=== PATIENT | female | born 1980 | race Caucasian/White ===

== ENCOUNTER 2019-04-21 11:28 | Emergency (ER) | payer BC, SELFPAY ==
[2019-04-21 11:29] VITALS: BP 170/89; PULSE 118; RESP 16; TEMP 36.7; O2SAT 98; BMI 38.8
[2019-04-21 11:44] VITALS: BP 136/83; PULSE 104; RESP 18; O2SAT 98
--- NOTE | 2019-04-21 11:52 | CT_ITS ---
STUDY: CT BRAIN WITHOUT CONTRAST REASON FOR EXAM: Female, 38 years old. DIZZY/RT EYE BLURRINESS RADIATION DOSAGE (If Supplied By Facility): CTDIvol = ( 44.99 ) mGy, DLP = ( 796.11 ) mGycm TECHNIQUE: Transaxial CT imaging of the brain was performed without administration of intravenous contrast material. Individualized dose optimization techniques were used for this CT. COMPARISON: No relevant priors. FINDINGS: Normal soft tissue structures. Normal calvarium. Normal size ventricles and extra-axial spaces for the patient's age. Normal white matter tracts of the cerebral hemispheres. Normal basal ganglia and thalami. Normal brainstem. Normal cerebellum. There is no intracranial hemorrhage. There are no findings of an acute ischemic infarction. Normal visualized paranasal sinuses. CT/Brain/Head without Contrast IMPRESSION: Normal unenhanced CT scan of the brain. Electronically Signed: Ritchie Payton MD at 12:31 EDT Tel , Service support ,
--- NOTE | 2019-04-21 11:59 | ED.VISSUMM ---
- ER Visit Summary Date of Service: 04/21/19 Chief Complaint: Dizzy History of Present Illness: The patient is a 38 F dyspnea past medical history. Patient states she was taken to walk. After the walk she was eating breakfast felt dizzy. May be some slight visual change in the right that is now resolved. May be a mild right headache. No trauma. No fever. No sinus congestion. No prior history. Currently states she is improving. She denies any trouble moving her arms or legs. No trouble with her balance. No slurred speech or numbness or tingling. Physical Examination: Female no acute distress vital signs stable afebrile. HEENT exam normal. Pupils round react to light. Extra motions are intact. No facial droop. Normal speech. Neck nontender. Lungs clear to auscultation bilaterally. Heart regular rhythm no murmur. Rate about 100. Abdomen soft nontender normal bowel sounds no peritoneal signs. Patient is moving all 4 extremities. Neurovascular intact. Normal touch sensation. 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 5 out of 5. Normal dorsi plantarflexion. Neurologic exam normal NIH is 0. Fingertip to nose [id number] all within normal limits. Test Results: CAT scan of the brain without contrast shows no acute abnormality read by the radiologist reviewed by me. Emergency Department Course and Treatment: Patient's exam and initial complaint is vague. Her exam is completely unremarkable and normal. Repeat exam at 1340 patient is doing well. No change. She denied discussed her CAT scan results. Treatment Plan: Follow-up with her primary care physician and return if worse. Disposition: Discharge Impression: Transient right-sided headache with dizziness uncertain etiology This note was generated with [employer]UK[employer] dictation software. It may contain incorrect words, spelling, and punctuation that were not noted in review of the chart prior to signing ED Disposition - Plan for ED Patient: Referrals: Migue Mcgowan MD [Primary Care Provider] -
--- NOTE | 2019-04-21 12:56 | EKG12_ITS ---
Test Reason : PALPITATIONS Blood Pressure : / mmHG Vent. Rate : 100 BPM Atrial Rate : 100 BPM P-R Int : 132 ms QRS Dur : 076 ms QT Int : 328 ms P-R-T Axes : 065 010 036 degrees QTc Int : 423 ms Normal sinus rhythm Possible Left atrial enlargement Borderline ECG Confirmed by JOSIE WRIGHT, ARLEEN ([id number]), magazine editor TRAMAINE HERNÁNDEZ ([id number]) on 04/26/2019 8:39:02 AM Referred By: DANIEL/MARION Confirmed By:ARLEEN GALINDO MD
--- NOTE | 2019-04-21 13:42 | ED.DEP ---
ED Disposition - Plan for ED Patient: Disposition: Home or Assisted Living Referrals: Migue Mcgowan MD [Primary Care Provider] - 5-7 Days Additional Instructions: Your CAT scan was normal today. Follow-up with your doctor. Return if feeling worse.
[2019-04-21 14:44] VITALS: BP 124/70; PULSE 86; RESP 16; BMI 38.8
== END 2019-04-21 14:45 | disposition home or self-care (01) ==
PROVIDERS: Emergency Provider Emergency Medicine; Family Provider Internal Medicine; PCP Internal Medicine
DX: R51 Headache (principal); R42 Dizziness and giddiness
CPT/HCPCS: 70450; 93005; 99283

== ENCOUNTER → 2020-03-28 17:51 | Outpatient (CLI) | payer BC, SELFPAY | PROVIDERS: Referring Provider Physician Assistant; Visit Provider Physician Assistant | DX: Z20.828 Contact with and (suspected) exposure to other viral communicable diseases (principal) | CPT/HCPCS: 87635; C9803; U0003 ==

== ENCOUNTER 2023-02-06 18:15 | Emergency (ER) | payer BC, SELFPAY ==
[2023-02-06 18:17] VITALS: BP 193/104; PULSE 94; RESP 18; TEMP 36.4; O2SAT 94; BMI 40.2
[2023-02-06 19:09] VITALS: BP 149/94; PULSE 91; RESP 99; O2SAT 97
--- NOTE | 2023-02-06 19:51 | CT_ITS ---
STUDY: CT BRAIN WITHOUT CONTRAST REASON FOR EXAM: Female, 42 years old. Pain RADIATION DOSAGE (If Supplied By Facility): CTDIvol = ( 44.99 ) mGy, DLP = ( 796.11 ) mGycm TECHNIQUE: Transaxial CT imaging of the brain was performed without administration of intravenous contrast material. Individualized dose optimization techniques were used for this CT. COMPARISON: 04/21/2019 FINDINGS: Normal soft tissue structures. Normal calvarium. Normal size ventricles and extra-axial spaces for the patient''s age. Normal white matter tracts of the cerebral hemispheres. Normal basal ganglia and thalami. Normal brainstem. Normal cerebellum. There is no intracranial hemorrhage. There are no findings of an acute ischemic infarction. Normal visualized paranasal sinuses. CT/Brain/Head without Contrast IMPRESSION: Normal unenhanced CT scan of the brain. Electronically Signed: Ricci Arambula MD at 20:45 EDT ,
--- NOTE | 2023-02-06 19:52 | EDS_ITS ---
HPI History of Present Illness Chief Complaint: Headache Informant: patient Narrative Narrative: 42-year-old female presenting to the emergency room on day 4 of a left frontal headache. Patient states she does not normally get headaches but if she does it is usually in the right frontal aspect. She states that Friday while at [employer] while sitting she had a near syncopal episode. This episode resolved and she felt fine on Friday. Friday the headache began and it has stayed the same. She notes that today she had some blurry vision and some occasional double vision. She notes that while walking her arms felt tingling and she went to her car to sit down and that episode lasted 20 minutes. She denies any recent infections or head injuries. She does not wear corrective lenses or contacts. No rashes. She notes that she does not take anything currently for hypertension. [facility] Medical History FH: cholecystectomy Home Medications bupropion HCl 300 mg 24 hr tablet, extended release 350 mg PO DAILY 02/06/23 [History Last Taken Unknown] Allergy/AdvReac Type Severity Reaction Status Date / Time nitrofurantoin Allergy Hives Verified 02/06/23 18:17 [From Macrobid] sulfamethoxazole Allergy Angioedema Verified 02/06/23 18:17 [From Bactrim] trimethoprim [From Bactrim] Allergy Angioedema Verified 02/06/23 18:17 Surgical History H/O: Social History Smoking Status: Never smoker ROS ROS ED Constitutional Constitutional ED: Denies chills or weight loss Eyes Eyes: Reports blurry vision and diplopia ENT ENT ED: Denies ear pain, rhinorrhea or sore throat Cardiovascular Cardiovascular: Denies chest pain, orthopnea, palpitations or racing heartbeat Respiratory/Chest Respiratory/Chest: Denies cough, dyspnea or orthopnea Gastrointestinal Gastrointestinal: Denies abdominal pain, diarrhea, nausea or vomiting Genitourinary Genitourinary ED: Denies dysuria, hematuria or urinary frequency Musculoskeletal Musculoskeletal: Denies arthralgias or myalgias Integumentary Denies abscess or rash Neurologic Neurologic: Reports headache(s); Denies weakness Psychiatric Psychiatric: Denies anxiety, depression, suicidal ideation or suicidal thoughts Endocrine Endocrinology: Denies polydipsia, polyphagia or polyuria Allergic/Immunologic Allergic/Immunologic ED: Denies mouth swelling, tongue swelling or urticaria EXAM Physical Exam Const Vital Signs: 02/06/23 18:17 02/06/23 19:09 02/06/23 19:10 Temperature 97.6 F L Temperature Source Temporal Pulse Rate 94 91 Respiratory Rate 18 99 H Respiratory Effort Normal Respiratory Pattern Normal Blood Pressure 193/104 H 149/94 H Blood Pressure Mean 133 112 Pulse Ox 94 97 Oxygen Delivery Method Room Air Room Air 02/06/23 20:55 Temperature Temperature Source Pulse Rate 79 Respiratory Rate 16 Respiratory Effort Respiratory Pattern Blood Pressure 125/61 H Blood Pressure Mean 82 Pulse Ox 97 Oxygen Delivery Method Room Air Positive well nourished and well developed General Appearance ED: well developed HEENT Reports normocephalic, head/scalp atraumatic and moist mucous membranes Eyes PERRL and EOMs intact bilaterally Neck no lymphadenopathy, supple and no JVD Resp normal respiratory effort and clear to auscultation bilaterally Cardio regular rate, regular rhythm and no murmurs GI normal to inspection, nondistended, normoactive bowel sounds and non-tender Palpation: soft Back/Spine no CVA tenderness and normal ROM Extremity normal to inspection General Extremety ED: Negative for edema General Extremity: Negative for edema Neuro oriented x3 and CN's II-XII intact bilaterally Sensorium / Orientation: alert Motor Exam: strength 5/5 throughout Psych mental status grossly normal Mood & Affect: Negative for depressed or tearful Skin no rashes or lesions noted and no wounds MDM MDM MDM Narrative Medical decision making narrative: Basic blood work obtained and was normal. Hemoglobin 13.2. Creatinine 0.71 and glucose of 85. CT the brain was obtained read by radiology reviewed by myself. This is negative for hemorrhage or mass or obvious lesions. Patient received a dose of Toradol and is overall feeling better. She remains neurologically intact. Her blood pressure has come down. At this point patient be discharged home return if worsening or concerns following up with primary care Lab Data Attestation: I reviewed the patient's lab results. Labs: Laboratory Results - last 24 hr 02/06/23 20:05 WBC 11.2 H RBC 4.54 Hgb 13.2 Hct 41.3 MCV 91.0 MCH 29.1 MCHC 32.0 RDW Std Deviation 44.0 H RDW Coeff of Zenia 13.2 Plt Count 351 MPV 9.8 Immature Gran % (Auto) 0.300 Neut % (Auto) 71.5 H Lymph % (Auto) 19.4 Avery % (Auto) 6.7 Eos % (Auto) 1.8 Baso % (Auto) 0.3 Absolute Neuts (auto) 8.1 H Absolute Lymphs (auto) 2.18 Nucleated RBC % 0 Sodium 137 Potassium 4.0 Chloride 104 Carbon Dioxide 28.0 Anion Gap 5 BUN 15 Creatinine 0.71 Estim Creat Clear Calc 90.04 Est GFR (MDRD) Af Amer 117 Est GFR (MDRD) Non-Af 97 BUN/Creatinine Ratio 21.2 H Glucose 85 Calcium 9.7 Discharge Plan Triage Chief Complaint: Headache ED Provider: Drake Baron Dx/Rx/DC Orders Clinical Impression: Headache Instructions: ED Headache Unspecified Prescriptions: No Action bupropion HCl 300 mg tablet extended release 24 hr 350 mg PO DAILY Patient Comments: take 1 tablet by mouth once daily Primary Care Provider: Care Physician,No Primary Referrals: Care Physician,No Primary [Primary Care Provider] - As Needed Disposition Disposition: Home, Self Care
[2023-02-06] MEDS: Ketorolac 30 MG/ML Syringe IV (20:05)
[2023-02-06 20:10] LABS: Absolute Lymphocyte Count 2.18 X10^3/uL (0.83-4.51); Absolute Neutrophil Count 8.1 X10^3/uL (2.0-7.7); Basophil# 0.03 X10^3/uL; Basophil% 0.3 % (0-1); Eosinophils% 1.8 % (0-5); Hematocrit 41.3 % (37-47); Hemoglobin 13.2 g/dL (12.0-15.0); Lymphocyte # 2.18 X10^3/ul (0.83-4.51); Lymphocyte % 19.4 % (19-41); Mean Corpuscular Hgb 29.1 pg (27.0-32.0); Mean Platelet Vol. 9.8 fl (6.2-12.0); Monocyte# 0.75 X10^3/uL; Monocyte% 6.7 % (0-10); NRBC Flagged by Analyzer 0 % (0-5); Neutrophil # 8.05 X10^3/uL (2.7-7.7); Neutrophil % 71.5 % (47-70); Platelet Count 351 K/mm3 (150-450); RBC Distribution Width CV 13.2 % (11.6-14.6); Red Blood Count 4.54 M/mm3 (4.2-5.4); White Blood Count 11.2 K/mm3 (4.4-11.0)
[2023-02-06 20:24] LABS: Anion Gap 5 (5-15); BUN 15 mg/dL (7-18); BUN/Creat Ratio 21.2 RATIO (10-20); Calcium,Total 9.7 mg/dL (8.5-10.1); Chloride 104 mmol/L (98-107); Creatinine, Serum 0.71 mg/dL (0.55-1.02); EST Glomerular Filtration Rate 97 mL/min (>60); Est Glom Filt Rate - Afr Amer 117 mL/min (>60); Estimated Creatinine Clearance 90.04 ml/min; Glucose 85 mg/dL (74-106); Sodium Level 137 mmol/L (136-145)
[2023-02-06 20:55] VITALS: BP 125/61; PULSE 79; RESP 16; O2SAT 97
== END 2023-02-06 22:05 | disposition home or self-care (01) ==
PROVIDERS: Emergency Provider Emergency Medicine; Visit Provider Emergency Medicine
DX: R51.9 Headache, unspecified (principal); Z79.899 Other long term (current) drug therapy
CPT/HCPCS: 70450; 80048; 85025; 96374; 99285; A4216

== ENCOUNTER → 2024-07-21 | Outpatient (CLI) | payer OTHER, SELFPAY ==
[2024-07-27 12:28] LABS: HPV APTIMA, High Risk Negative (Negative)
== END | disposition home or self-care (01) ==
PROVIDERS: Visit Provider Obstetrics & Gynecology
DX: Z12.4 Encounter for screening for malignant neoplasm of cervix (principal)
CPT/HCPCS: 87624; 88175; G0145

== ENCOUNTER → 2024-07-26 | Outpatient (CLI) | payer OTHER, SELFPAY ==
--- NOTE | 2024-07-26 17:50 | US_ITS ---
PROCEDURE: PELVIC W/ TRANSVAGINAL TECHNIQUE: Transabdominal and transvaginal pelvic ultrasound COMPARISON: None. FINDINGS: The uterus is anteverted measuring 9.8 x 5.7 x 3.6 cm. No abnormal masses or fluid collections are identified. Endometrial stripe measures 8 mm. No intrauterine . No intrauterine device is noted. Nabothian cyst within the lower uterine segment. Cervix appears within normal limits. The right ovary measures 2.5 x 1.5 x 1.6 cm. No abnormal masses or fluid collections are identified. Blood flow is demonstrated. The left ovary measures 3.2 x 2.2 x 1.4 cm. No abnormal masses or fluid collections are identified. Blood flow is demonstrated. No free fluid is seen within the pelvis. The urinary bladder measures 13.3 x 9.7 x 8.1 cm, for an estimated volume of 547.1 mL. US/Pelvic w/ Transvaginal IMPRESSION: 1. Uterus is anteverted measuring up to 9.8 cm. No masses or fluid collections are identified. 2. No ovarian masses or fluid collections are identified. 3. Negative for ovarian torsion, bilaterally. Reading [facility]
== END | disposition home or self-care (01) ==
LOC: US 17:47
PROVIDERS: Visit Provider Obstetrics & Gynecology
DX: N85.2 Hypertrophy of uterus (principal)
CPT/HCPCS: 76830; 76856

== ENCOUNTER → 2024-08-12 | Outpatient (CLI) | payer OTHER, SELFPAY ==
--- NOTE | 2024-08-12 09:23 | BI_ITS ---
PROCEDURE: SCREEN MAMM (CAD) W/SCOT UNI L REASON FOR EXAM: F, Age 43 y/o, personal history of breast cancer. Prior right mastectomy. July 31, 2023. COMPARISON: Prior exam(s) dating back to . TECHNIQUE: Bilateral diagnostic digital breast tomosynthesis with 2D and 3D images. Computer aided detection. FINDINGS: There are scattered areas of fibroglandular density. No suspicious calcifications or mass lesion is seen. Stable benign-appearing left axillary lymph nodes. BI/SCREEN MAMM (CAD) W/SCOT UNI L IMPRESSION: Annual mammographic follow-up recommended. BI-RADS 2: BENIGN RECOMMEND ANNUAL MAMMOGRAPHIC SCREENING. Reading Location: [facility]
--- NOTE | 2024-08-12 09:23 | BD_ITS ---
PROCEDURE: DEXA BONE DENSITY STUDY REASON FOR EXAM: F, age 43 y/o . Postmenopausal. TECHNIQUE: DEXA scan of the lumbar spine and both hips. COMPARISON: None. FINDINGS: T-SCORES Lumbar spine: The total bone mineral density measured 0.995 grams/centimeter squared. T-score measures -0.5 and Z-score measures -0.2. Left hip: Total bone mineral density of the left hip measures 1.084 grams/centimeter squared. T-score measures 1.2 and Z-score measures 1.4. Bone mineral density of the left femoral neck measures 0.828 grams/centimeter squared. T-score measures -0.2 and Z-score measures 0.2. Right hip: Total bone mineral density of the right hip measures 1.049 grams/centimeter squared. T-score measures 0.9 and Z-score measures 1.1. Bone mineral density of the right femoral neck measures 0.845 grams/centimeter sq. T-score measured 0 and Z-score measures 0.3. The patient demonstrates normal bone mineral density of the lumbar spine and both hips. FRAX* Results: 10 Year Probability of Fracture: Hip Fracture(1): <0.1% Major Osteoporotic Fracture(2): 1.9% *FRAX is a trademark of the [employer]'s [place] for Metabolic Bone Disease, World Health Organization (WHO) Collaborating [place]. 1-The 10-year probability of fracture may be lower than reported if the patient has received treatment. 2-Major Osteoporotic Fracture: Clinical Spine, Forearm, Hip or Shoulder. The T-scores are also available for review on the [facility] PACS or by accessing the [facility] electronic medical record. BD/Dexa Bone Density Study IMPRESSION: NORMAL T-SCORES. Reading Location: [id number]
== END | disposition home or self-care (01) ==
LOC: OPBI 09:11
PROVIDERS: Referring Provider Surgery; Visit Provider Surgery
DX: Z12.31 Encounter for screening mammogram for malignant neoplasm of breast (principal); Z78.0 Asymptomatic menopausal state; Z13.820 Encounter for screening for osteoporosis
CPT/HCPCS: 77063; 77067; 77080

== ENCOUNTER → 2024-08-25 | Outpatient (CLI) | payer OTHER, SELFPAY ==
--- NOTE | 2024-08-25 | EMB_PTH ---
PATIENT: LISSY KEARNEY LOC: [facility] U#:[id number] AGE/SX: 43/F ROOM: RE08/25/[address]: JOEY Reynolds : 1980 BED: DIS: 08/25/2024 SPEC #: [id number] RECD: 08/25/24 12:11 STATUS: TELMA SIMON #: [id number] ELIAZAR: 08/25/24 00:[address]: Dilia Romero NP DEPT: SURGICAL PATHOLOGY RECD BY: Shannan Abarca ENTERED: 08/25/24 12:19 SP TYPE: ENDOM BX/C DAVID DR: No Primary Care Phys Tissues: Endometrium, NOS Procedures: Surgery Specimen Level IV HEADER OPERATION: Endometrial biopsy PRE-OP DIAGNOSIS: Abnormal uterine bleeding TISSUE SUBMITTED: Endometrial lining MICROSCOPIC DIAGNOSIS Endometrium, biopsy: * Scant benign squamous and columnar epithelium - see note. * Note: There is insufficient tissue for evaluation of the endometrium. Repeat biopsy for additional material is suggested, if clinically indicated. MICROSCOPIC DESCRIPTION Slides are reviewed. GROSS DESCRIPTION Received in formalin labeled the patient's name Lissy Kearney and is undesignated are multiple red-laureano scant tissue fragments and mucus that aggregate to 1.7 x 1.5 x 0.1 cm. Fragments are entirely submitted in one cassette.JK. 08/25/2024 TC: CPT:84413
== END | disposition home or self-care (01) ==
LOC: LABSPEC 11:54
PROVIDERS: Referring Provider Nurse Practitioner Women's Health; Visit Provider Nurse Practitioner Women's Health
DX: N93.9 Abnormal uterine and vaginal bleeding, unspecified (principal)
CPT/HCPCS: 88305

== ENCOUNTER 2024-09-28 08:32 | Day surgery (SDC) | payer OTHER, SELFPAY ==
--- NOTE | 2024-09-14 18:17 | PAT.ANE_ITS ---
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 When Was Last Pacemaker Check QUESTION #4 FULL TEXT: You/Your Family Experience fever (hyperthermia) with Anesthesia Last Oral Intake Last Oral intake: Last Oral Intake NPO since Meds taken in AM with sips of water? Meds patient instructed to take am of surgery PONV PONV - data conversion operator: PONV - data conversion operator Female Yes 09/14/24 15:07 HX of Motion Sickness Yes 09/14/24 15:07 HX of N/V After Surgery No 09/14/24 15:07 Non-Smoker Yes 09/14/24 15:07 Duration of Surgery greater Yes 09/14/24 15:07 than 60 minutes Number of Risk Factors 4 09/14/24 15:07 PONV Score Severe Risk 09/14/24 15:07 Height & Weight Height & Weight: Anesthesia: Height & Weight Height 5 ft 5 in 09/06/24 15:56 Respiratory Assessment Respiratory Assessment - data conversion operator: Respiratory Tract Infection Hx - data conversion operator Hx Respiratory Tract Infection No 09/14/24 15:07 STOP Sleep Apnea STOP Sleep Apnea - data conversion operator: STOP Sleep Apnea - data conversion operator Hx Hypertension No 09/14/24 15:07 Hx Sleep Apnea No 09/14/24 15:07 CPAP BIPAP Do you snore loudly (louder Yes 09/14/24 15:07 than talking or can be heard Do you often feel tired/ Yes 09/14/24 15:07 fatigued/ sleepy during daytime? Has anyone observed you stop No 09/14/24 15:07 breathing during sleep? STOP Results Positive 09/14/24 15:07 QUESTION #5 FULL TEXT : Do you snore loudly (louder than talking or can be heard through closed doors)? 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 Specify any problems Hx of Preganancy in last 3 No 09/14/24 15:07 Months Nurse Filling Out Transfusion DSCHRIBER 09/14/24 15:07 & Questions: Date: 09/14/24 09/14/24 15:07 Time: 15:09 09/14/24 15:07 Patient unable to answer at this time (ie. confused, unrespo /Reproduction History /Reproductive History - data conversion operator: /Reproductive Hx- data conversion operator Hx Now No 09/14/24 15:07 Gestational Age (in weeks): EDC: Hx Hx Para Hx Section SAB No 09/14/24 15:07 PFSH Medical History (Updated 09/14/24 @ 15:14 by Delia Ritchie) Cancer Depression Marijuana use Anxiety Alcohol use Anemia Restless legs Back pain Migraine headache History of IBS Shortness of breath on exertion Leg cramps Non-smoker History of edema History of irregular heartbeat IFG (impaired fasting glucose) Use of aromatase inhibitors Screening for osteoporosis Breast screening Home Medications ?Medication ?Instructions ?Recorded ?Last Taken ?Type anastrozole 1 mg tablet 1 mg PO QDAY 06/29/24 Unknow n History fluticasone propionate 50 2 spray intranasal QDAY 01/14 Unknown History mcg/actuation nasal spray,suspension (Flonase Allergy Relief) ibuprofen 600 mg tablet 600 mg PO Q6H PRN pain 06/29 Unknown History leuprolide 3.75 mg intramuscular 3.75 mg IM QMONTH 11/1409/01/24 History syringe kit (Lupron Depot) lorazepam 0.5 mg tablet 0.5 mg PO QDAY PRN anxiety # 30 tabs 08/27/24 Unknown Rx Allergy/AdvReac Type Severity Reaction Status Date / Time ciprofloxacin (From Cipro) Allergy Intermediate Swelling Verified 09/14/24 15:04 nitrofurantoin (From Allergy Hives Verified 09/14/24 15:04 Macrobid) sulfamethoxazole (From Allergy Angioedema Verified 09/14/24 15:04 Bactrim) trimethoprim (From Bactrim) Allergy Angioedema Verified 09/14/24 15:04 Family History Other Alcoholism Anxiety Asthma Cancer Diabetes Hypertension Surgical History (Updated 09/14/24 @ 15:14 by Delia Ritchie) H/O right breast implant History of cholecystectomy H/O total mastectomy of right breast H/O: Social History household members: spouse Smoking Status: Never smoker alcohol intake: current alcohol intake frequency: a few times a month substance use type: other details: has started taking edibles caffeine: Yes what type of physical activity do you participate in: yoga frequency: daily seatbelt use: always do you feel safe at home: Yes additional social history: -Arron Audit: Pertinent Findings Pertinent Findings EKG Perinent findings: April 21, 2019. Normal sinus rhythm. Possible left atrial enlargement. Recommendation Anesthesia Recommendation Anesthesia recommendation: OPTIMIZED for anesthesia
[2024-09-21 10:52] LABS: Hematocrit 38.6 % (37-47); Hemoglobin 12.7 g/dL (12.0-15.0); Mean Corp Hgb Conc 32.9 g/dL (32-36); Mean Corpuscular Hgb 27.9 pg (27.0-32.0); Mean Corpuscular Volume 84.8 fL (81-99); Mean Platelet Vol. 9.8 fl (6.2-12.0); Platelet Count 358 K/mm3 (150-450); RBC Distribution Width CV 13.7 % (11.6-14.6); RBC Distribution Width SD 42.3 fl (35.1-43.9); Red Blood Count 4.55 M/mm3 (4.2-5.4); White Blood Count 6.5 K/mm3 (4.4-11.0)
[2024-09-21 12:48] LABS: Magnesium 2.1 mg/dL (1.5-2.2)
[2024-09-21 14:04] LABS: Cholesterol 196 mg/dL (<=200); High Density Lipoprotein 56 mg/dL; Low Density Lipoprotein Calc. 119 mg/dL; Triglycerides 104 mg/dL; Very Low Density Lipoprotein 21 mg/dL (5-40); cholesterol:hdl ratio screen 3.49
[2024-09-28] VITALS (15 sets, daily range): BP systolic 117–155; BP diastolic 70–97; PULSE 67–96; RESP 12–16; TEMP 36.1–36.7; O2SAT 96–100; BMI 42.3
[2024-09-28 09:01] LABS: Internal QC Validated? YES +Cl - CLEAR BKGD; Pregnancy, Urine Negative Negative
[2024-09-28] MEDS: Lactated Ringers 1,000 ML 15 ML IV (09:11)
[2024-09-28] MEDS: Magnesium 1 GM over 15 mins IV (09:11)
[2024-09-28] MEDS: Gabapentin 600 MG Tablet PO (09:12)
[2024-09-28] MEDS: Scopolamine 1mg/72hr Patch 1 PATCH TD (09:12)
[2024-09-28] MEDS: Phenazopyridine 95 MG Tablet 190 MG PO (09:12)
[2024-09-28] MEDS: Acetaminophen 500 MG Tablet 1000 MG PO (09:12)
[2024-09-28] MEDS: Celecoxib 200 MG Capsule 400 MG PO (09:12)
[2024-09-28] MEDS: Insulin Lispro 100 UNIT/ML INSULN.PEN SC (09:24)
--- NOTE | 2024-09-28 09:28 | PCM.PRE.AN2 ---
ASA Classification* ASA Classification ASA Classification: 3 Assessment & Plan Anesthesia* Anesthesia Assessment Anesthesia Assessment: Discussed sedation and/or anesthesia options, risks, benefits, and alternatives with patient/parents/legal guardian/POA. Questions invited. The patient/parents/legal guardian/POA seems to understand and agrees to proceed with anesthesia plan. Reviewed the physical assessment, medical history, allergy history and patient home medications list prior to surgery/procedure/anesthetic and documented any changes. Performed airway and anesthesia risk assessments. Anesthesia Type Anesthesia Type: General History Source History Obtained from:: Patient and Chart Anesthesia Focused Assessment* Temperature: 97.8 F Pulse Rate: 82 Blood Pressure: 155/90 Respiratory Rate: 16 Pulse Ox: 99 Oxygen Delivery Method: Room Air Airway Assessment Mouth opens: 2 cm Mallampati Score: III Teeth Condition: Caps/Crowns (There is a crown on #7. It is tight.) Neck Range of motion (ROM): Full ROM Focused Labs Anesthesia Preop lab: CBC WBC 6.5 K/mm3 (4.4-11.0) 09/21/24 10:10 09/21/24 RBC 4.55 M/mm3 (4.2-5.4) 09/21/24 10:10 09/21/24 Hgb 12.7 g/dL (12.0-15.0) 09/21/24 10:10 09/21/24 Hct 38.6 % (37-47) 09/21/24 10:10 09/21/24 Plt Count 358 K/mm3 (150-450) 09/21/24 10:10 09/21/24 CHEMISTRY Potassium 4.3 mmol/L (3.3-5.1) 09/01/24 10:19 09/01/24 Sodium 137 mmol/L (133-145) 09/01/24 10:19 09/01/24 Magnesium 2.1 mg/dL (1.5-2.2) 09/21/24 10:10 09/21/24 BUN 11 mg/dL (4-19) 09/01/24 10:09/01/24 Creatinine 0.62 mg/dL (0.70-1.20) L 09/01/24 10:19 09/01/24 Glucose 104 mg/dL (70-99) H 09/01/24 10:19 09/01/24 COAG Urine Test Negative Negative 09/28/24 08:45 09/28/24 Pre-Assessment Diagnosis/Proposed Procedure Planned Operative Procedure(s): LAP TOTAL ROBOTIC HYSTERECTOMY BSO Anesthesia History Anesthesia History - events specialist: Anesthesia History - events specialist Hx Hospitalization No 09/14/24 15:07 Any Problems With Anesthesia No 09/14/24 15:07 Cholinesterase deficiency No 09/14/24 15:07 You/Your Family Experience No 09/14/24 15:07 fever (hyperthermia) with Relationship Recent Exposure to Contagious No 09/28/24 09:02 Disease Does patient have nerve No 09/14/24 15:07 stimulator Patient instructed to have device shut off --Does patient have Pacemaker No 09/28/24 09:02 or ICD? When Was Last Pacemaker Check QUESTION #4 FULL TEXT: You/Your Family Experience fever (hyperthermia) with Anesthesia Last Oral Intake Last Oral intake: Last Oral Intake NPO since 07:30 09/28/24 09:02 Meds taken in AM with sips of Yes 09/28/24 09:02 water? Meds patient instructed to ensure 09/28/24 09:02 take am of surgery Any additional information?: Yes NPO since: 07:45 (Patient finished preop Ensure at 7:45 AM.) Meds taken in AM with sips of water?: Yes PONV PONV - events specialist: PONV - events specialist Female Yes 09/14/24 15:07 HX of Motion Sickness Yes 09/14/24 15:07 HX of N/V After Surgery No 09/14/24 15:07 Non-Smoker Yes 09/14/24 15:07 Duration of Surgery greater Yes 09/14/24 15:07 than 60 minutes Number of Risk Factors 4 09/14/24 15:07 PONV Score Severe Risk 09/14/24 15:07 Height & Weight Height & Weight: Anesthesia: Height & Weight Height 5 ft 4 in 09/28/24 09:02 Weight: 112 kg 09/28/24 09:02 Body Mass Index (BMI) 42.3 09/28/24 09:02 Respiratory Assessment Respiratory Assessment - events specialist: Respiratory Tract Infection Hx - events specialist Hx Respiratory Tract Infection No 09/14/24 15:07 STOP Sleep Apnea STOP Sleep Apnea - events specialist: STOP Sleep Apnea - events specialist Hx Hypertension No 09/14/24 15:07 Hx Sleep Apnea No 09/14/24 15:07 CPAP BIPAP Do you snore loudly (louder Yes 09/14/24 15:07 than talking or can be heard Do you often feel tired/ Yes 09/14/24 15:07 fatigued/ sleepy during daytime? Has anyone observed you stop No 09/14/24 15:07 breathing during sleep? STOP Results Positive 09/14/24 15:07 QUESTION #5 FULL TEXT : Do you snore loudly (louder than talking or can be heard through closed doors)? 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 Specify any problems Hx of Preganancy in last 3 No 09/14/24 15:07 Months Nurse Filling Out Transfusion DSCHRIBER 09/14/24 15:07 & Questions: Date: 09/14/24 09/14/24 15:07 Time: 15:09 09/14/24 15:07 Patient unable to answer at this time (ie. confused, unrespo /Reproduction History /Reproductive History - events specialist: /Reproductive Hx- events specialist Hx Now No 09/14/24 15:07 Gestational Age (in weeks): EDC: Hx Hx Para Hx Section SAB No 09/24/24 11:22 Active Medications Active Medications: Current Medications Generic Name Dose Route Start Last Admin Trade Name Freq PRN Reason Stop Dose Admin Acetaminophen 1,000 mg 09/28/24 10:45 09/28/24 09:12 Acetaminophen 500 Mg Tablet PO 09/28/24 10:46 1,000 mg PREOP ONE Administration Celecoxib 400 mg 09/28/24 10:45 09/28/24 09:12 Celecoxib 200 Mg Capsule PO 09/28/24 10:46 400 mg X1 ONE Administration Gabapentin 600 mg 09/28/24 10:45 09/28/24 09:12 Gabapentin 600 Mg Tablet PO 09/28/24 10:46 600 mg PREOP ONE Administration Lactated Ringer's 1,000 mls @ 40 mls/hr 09/28/24 10:45 IV .Q25H DEMARCUS Cefazolin Sodium 2 gm/ N/A 20 mls @ 400 mls/hr 09/28/24 10:45 IV 09/28/24 10:47 PREOP ONE Lactated Ringer's 1,000 mls @ 70 mls/hr 09/28/24 10:45 IV .[id number] DEMARCUS Magnesium Sulfate 1 gm/ 102 mls @ 408 mls/hr 09/28/24 10:45 09/28/24 09:11 Dextrose IV 09/28/24 10:59 408 mls/hr X1 ONE Administration Lactated Ringer's 1,000 mls @ 15 mls/hr 09/28/24 09:00 09/28/24 09:11 IV 15 mls/hr .Q48H DEMARCUS Administration Insulin Human Lispro 0 unit 09/28/24 10:45 09/28/24 09:24 Insulin Lispro 100 Unit/Ml Insuln.Pen SC 09/28/24 18:00 1 u Q4H PRN PRN Administration BG >/= 180, SEE PROTOCOL Protocol Ondansetron HCl 4 mg 09/28/24 10:45 Ondansetron 4 Mg/2 Ml Vial IV 09/28/24 10:46 X1 ONE Phenazopyridine HCl 190 mg 09/28/24 10:45 09/28/24 09:12 Phenazopyridine 95 Mg Tablet PO 09/28/24 10:46 190 mg X1 ONE Administration Scopolamine HBr 1 patch 09/28/24 10:45 09/28/24 09:12 Scopolamine 1mg/72hr Patch TD 09/28/24 10:46 1 patch X1 ONE Administration PFSH Medical History Cancer Depression Marijuana use Anxiety Alcohol use Anemia Restless legs Back pain Migraine headache History of IBS Shortness of breath on exertion Leg cramps Non-smoker History of edema History of irregular heartbeat IFG (impaired fasting glucose) Use of aromatase inhibitors Home Medications ?Medication ?Instructions ?Recorded ?Last Taken ?Type anastrozole 1 mg tablet 1 mg PO QDAY 06/29/24 09/27/24 History fluticasone propionate 50 2 spray intranasal QDAY 06/29/24 Unknown History mcg/actuation nasal spray,suspension (Flonase Allergy Relief) ibuprofen 600 mg tablet 600 mg PO Q6H PRN pain 06/29/24 09/25/24 History lorazepam 0.5 mg tablet 0.5 mg PO QDAY PRN anxiety #30 tabs 08/27/24 09/25/24 Rx buspirone 5 mg tablet 5 mg PO BID #60 tabs 09/23/24 Unknown Rx Held on 09/28/24. Instructions: will start after surgery Allergy/AdvReac Type Severity Reaction Status Date / Time ciprofloxacin (From Cipro) Allergy Intermediate Swelling Verified 09/28/24 08:59 nitrofurantoin (From Allergy Hives Verified 09/28/24 08:59 Macrobid) sulfamethoxazole (From Allergy Angioedema Verified 09/28/24 08:59 Bactrim) trimethoprim (From Bactrim) Allergy Angioedema Verified 09/28/24 08:59 Family History Mother Alcoholism Diabetes Hypertension Father Alcoholism Grandmother Asthma Diabetes Aunt Asthma Grandfather Cancer stomach Grandmother Cancer brain Grandfather Diabetes Surgical History H/O right breast implant History of cholecystectomy H/O total mastectomy of right breast H/O: Social History household members: spouse current occupational status: unemployed Smoking Status: Never smoker alcohol intake: current alcohol intake frequency: holidays/special occasions only substance use type: other details: previously used edibles caffeine: Yes what type of physical activity do you participate in: yoga frequency: daily seatbelt use: always do you feel safe at home: Yes additional social history: Maria M Review of Systems (Anesthesia) ROS Narrative System reviewed and no additional complaints, except as documented.
[2024-09-28 09:46] LABS: Bedside Glucose 189 mg/dL (74-106)
[2024-09-28] MEDS: Bupivacaine 0.25% 30 ML Vial (09:51)
--- NOTE | 2024-09-28 10:27 | DCINST_ITS ---
Discharge Instructions Diet Discharge Diet: No restrictions DC O2, CPAP, BIPAP needs Home O2 Discharge instructions: No Dressing / Incision Discharge Activity: May Shower May resume sexual activity in: 8 weeks Weight Bearing Status: Full weight bearing Lifting Restrictions: 10 pounds for 2 weeks Dressing / Incision Call your doctor if your incision/area has: Continuous Slow Oozing, Sudden Increased Bleeding, Increased Pain/ Swelling, Increased Redness and Foul Smelling Discharge Call your doctor if you observe: Fever of 101 or Higher, Using more than 1 pad per hour, Shortness of breath, Chest pain and Uncontrolled pain Suture Line Care: Avoid Pulling/Pushing and Avoid Pinching/Bending Remove Dressing in: 1 week (if present) Cleanse incision/area with: Soap & Water and Keep Dressing Clean & Dry Follow Up Care Please Follow Up With: Margie Nicolas DO When: Call to make an appointment with your doctor for a postop visit in 2 and 6 weeks Test Results: Test results from this visit will be discussed in further detail at your follow- up appointment, if applicable. Discharge Plan Admission Primary Reason for Your Visit: hysterectomy Attending Provider: Margie Nicolas Primary Care Provider: Nataliia Luciano Consulting Providers: Zack Montero Instructions Print Language: [place] Discharge Orders/Prescriptions Prescriptions: New ibuprofen 800 mg tablet 800 mg PO Q8H PRN (Reason: pain) Qty: 30 0RF ondansetron HCl 4 mg tablet 4 mg PO Q6H PRN (Reason: nausea and vomiting) Qty: 30 0RF oxycodone-acetaminophen [Percocet] 5-325 mg tablet 1 tab PO Q4H PRN (Reason: pain) 7 Days Qty: 20 0RF Continued anastrozole 1 mg tablet 1 mg PO QDAY fluticasone propionate [Flonase Allergy Relief] 50 mcg/actuation spray,suspension 2 spray intranasal QDAY Rx Instructions: administer into each nostril ibuprofen 600 mg tablet 600 mg PO Q6H PRN (Reason: pain) buspirone 5 mg tablet 5 mg PO BID Qty: 60 1RF lorazepam 0.5 mg tablet 0.5 mg PO QDAY PRN (Reason: anxiety) Qty: 30 0RF Referrals / Follow Up: Care Physician,No Primary [Non-Staff] - Disposition Disposition (needs filled in before D/C Order can be placed): Home, Self Care
--- NOTE | 2024-09-28 10:45 | HYST_PTH ---
PATIENT: JULIO CRAIN LOC: [facility] [place] U#:[id number] AGE/SX: 44/F ROOM: RE09/28/[address]: Dr. Margie Nicolas DO : 1980 BED: DIS: 09/28/2024 SPEC #: [id number] RECD: 09/28/24 15:15 STATUS: TELMA MCCOYViola #: [id number] ELIAZAR: 09/28/24 10:[address]: Margie Nicolas DEPT: SURGICAL PATHOLOGY RECD BY: Shannan Abarca ENTERED: 09/29/24 08:45 SP TYPE: HYSTERECT OTHR DR: Dr. Nataliia Luciano, MINESH Hayes Tissues: A - Uterus, NOS Procedures: Surgery Specimen Level V HEADER OPERATION: ERAS, laparoscopic total robotic hysterectomy PRE-OP DIAGNOSIS: Menorrhagia with regular cycle, malignant neoplasm of upper-outer quadrant of right breast in female, estrogen receptor positive TISSUE SUBMITTED: A- Uterus and bilateral fallopian tubes and ovaries MICROSCOPIC DIAGNOSIS A. Uterus, cervix, bilateral ovaries and fallopian tubes, total hysterectomy and bilateral salpingo-oophorectomy: * Cervix: no specific pathologic change. * Endometrium: inactive/basalis. * Myometrium: leiomyomata (1.3 cm). * Right ovary: multiple cystic follicles. * Left ovary: multiple cystic follicles. * Right fallopian tube: no specific pathologic change. * Left fallopian tube: no specific pathologic change. MICROSCOPIC DESCRIPTION Slides are reviewed. GROSS DESCRIPTION A. Received in formalin in a container labeled with the patient's name, date of , and uterus and bilateral fallopian tubes and ovaries is a uterus with attached cervix, attached right adnexa, attached left ovary with possible left fallopian tube remnant. The adnexa are amputated, and the uterus is 69 g and 9.5 cm from fundus to ectocervix, 3.5 cm from cornu to cornu, and 4.5 cm from anterior to posterior. The serosa exhibits dense laureano-brown adhesions at the anterior aspect, possibly consistent with a previous section scar. There are subserosal nodules present at the posterior aspect. The white-pink and smooth ectocervix is 1.7 x 1.2 cm with a 0.7 x 0.4 cm ovoid os. The specimen is bivalved to reveal a 5.5 x 0.4 cm endocervical canal. The linear endometrial cavity is 3.1 x 1.4 cm with red-laureano, smooth endometrium ranging from 0.1 to 0.3 cm in thickness. The laureano-pink myometrium appears somewhat trabecular and measures up tissue 0.0 cm in thickness. There are multiple intramural, subserosal, and submucosal nodules within the anterior and posterior myometrium ranging from 0.2 x 0.2 x 0.2 cm to 1.3 x 0.9 x 0.8 cm. No hemorrhage or necrosis is identified. The right adnexa consist of a fimbriated fallopian tube measuring 3.5 x 0.7 cm with laureano-pink serosa and a feathery fimbriated end. A 1.0 x 0.7 cm laureano-yellow and thinly encapsulated portion adipose tissue is adherent to 1 side. Serial sections reveal a lumen ranging from 0.1 to 0.3 cm. the right ovary is 5.5 g and measures 3.2 x 2.1 x 1.5 cm. The laureano-pink and smooth outer surface is inked black and serial sections reveal multiple small cystic structures ranging from 0.3 to 0.8 cm in greatest dimension. The inner linings are smooth and glistening. No firm or papillary areas identified. The left adnexa consist of a previously disrupted, shaggy tubular structure, possibly consistent with fallopian tube remnant, measuring 2.0 x 0.5 cm. No distinct fimbriated end is identified. Serial sections reveal a pinpoint lumen. The left ovary is 6.6 g and measures 2.3 x 2.2 x 1.5 cm. The laureano-pink and smooth outer surface is inked black and serial sections reveal multiple small cystic structures ranging from 0.2 to 0.8 cm in greatest dimension. The cystic areas exhibit smooth and glistening inner linings with no firm or papillary areas identified. Rails Developer sections:A1. Anterior and posterior cervixA2. Anterior and posterior serosal shaves with dense adhesions and subserosal nodulesA3. Anterior endomyometrium with nodules (superficial x 2)A4. Posterior endomyometrium with nodules (superficial x 2)A5-6. Right fallopian tube, entirely submittedA7-10. Right ovary, entirely submittedA 11. Left fallopian tube, entirely submittedA 12-. Left ovary, entirely submitted [facility] 09-29-2024 CPT:18772
--- NOTE | 2024-09-28 11:26 | PCM.HP.BLA ---
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 Is patient in pain?: No Allergies ciprofloxacin (From Cipro) Allergy (Intermediate, Verified 09/24/24 11:20) Swellingnitrofurantoin (From Macrobid) Allergy (Verified 09/24/24 11:20) Hivessulfamethoxazole (From Bactrim) Allergy (Verified 09/24/24 11:20) Angioedematrimethoprim (From Bactrim) Allergy (Verified 09/24/24 11:20) Angioedema Medications ?Medication ?Instructions ?Recorded ?Confirmed ?Type anastrozole 1 mg tablet 1 mg PO QDAY 06/29/24 09/24/24 History fluticasone propionate 50 2 spray intranasal QDAY 06/29/24 09/24/24 History mcg/actuation nasal spray,suspension (Flonase Allergy Relief) ibuprofen 600 mg tablet 600 mg PO Q6H PRN pain 06/29/24 09/24/24 History lorazepam 0.5 mg tablet 0.5 mg PO QDAY PRN anxiety #30 tabs 08/27/24 09/24/24 Rx buspirone 5 mg tablet 5 mg PO BID #60 tabs 09/23/24 09/24/24 Rx Post menopausal: No Patient : No : No PFSH Medical History Cancer Depression Marijuana use Anxiety Alcohol use Anemia Restless legs Back pain Migraine headache History of IBS Shortness of breath on exertion Leg cramps Non-smoker History of edema History of irregular heartbeat IFG (impaired fasting glucose) Use of aromatase inhibitors Surgical History H/O right breast implant History of cholecystectomy H/O total mastectomy of right breast H/O: Family History Mother Alcoholism Diabetes HypertensionFather AlcoholismGrandmother Asthma DiabetesAunt AsthmaGrandfather Cancer stomachGrandmother Cancer brainGrandfather Diabetes Social History household members: spouse current occupational status: unemployed Smoking Status: Never smoker alcohol intake: current alcohol intake frequency: holidays/special occasions only substance use type: other details: previously used edibles caffeine: Yes what type of physical activity do you participate in: yoga frequency: daily seatbelt use: always do you feel safe at home: Yes additional social history: -Arrno Yap. Details: JULIO CRAIN is a 43 year old ( sections) who presents to the office today to discuss prophylactic BSO to better elizabeth breast cancer treatment. She presented with breast asymmetry in July 2023. Mammogram on 07/31/2023 showed 3 cm irregular mass in the right breast. Ultrasound of the right breast and axilla showed 2.8 cm irregular mass in the right breast at 10 o'clock position with small right axillary node. Ultrasound-guided core biopsy on 08/11/2023 showed invasive lobular carcinoma, ER 91 to 100% positive, NE 91 to 100% positive, HER2 2+ by IHC, negative by FISH. She underwent right mastectomy and sentinel node biopsy on 09/08/2023, had reconstruction with tissue physical biochemist placement at the same time. Pathology showed invasive carcinoma with mixed ductal and lobular features, grade 2, multifocal disease, largest was 49mm, margins negative, lymph nodes 4 negative. Pathologic staging pT2 pN0. Oncotype DX recurrence score 11. She was diagnosed with prognostic stage IIB. She is started on Lupron 3.75 mg monthly with Aromasin on 10/24/2023 which was then changed to anastrozole because of intolerance/joint pains. Tissue physical biochemist was removed on 03/08/2024. She states that when she stops the lupron (which was stopped due to insurance change) she has very heavy periods. She used mirena for a while but this was just a band aid She was told by her breed to wean production technician's at [facility] that her uterus is very enlarged. She was also told by her ob at the time of her last section that they took out pounds and pounds of scar tissue She would like to explore the option of a hysterectomy and BSO if possible. ultrasound showed the following: The uterus is anteverted measuring 9.8 x 5.7 x 3.6 cm. No abnormal masses or fluid collections are identified. Endometrial stripe measures 8 mm. No intrauterine . No intrauterine device is noted. Nabothian cyst within the lower uterine segment. Cervix appears within normal limits. The right ovary measures 2.5 x 1.5 x 1.6 cm. No abnormal masses or fluid collections are identified. Blood flow is demonstrated. The left ovary measures 3.2 x 2.2 x 1.4 cm. No abnormal masses or fluid collections are identified. Blood flow is demonstrated. No free fluid is seen within the pelvis. The urinary bladder measures 13.3 x 9.7 x 8.1 cm, for an estimated volume of 547.1 mL. US/Pelvic w/ Transvaginal IMPRESSION: 1. Uterus is anteverted measuring up to 9.8 cm. No masses or fluid collections are identified. 2. No ovarian masses or fluid collections are identified. 3. Negative for ovarian torsion, bilaterally. EMB was attempted but the sample was inadequate and patient decline a second attempt. History 2 Elective abortions Hx Para 2 Spontaneous abortions Hx # Term Pregnancies Ectopic pregnancies Hx # Pregnancies Multiple births # of living children Past Pregnancies Del. Date Name GA/Weeks Outcome Route Bth Weight Infant Gen Labor Lgth Anesthesia Del Locatn Provider FOB Unknown Monserrat Unknown Jun ROS Const ROS Unobtainable: All systems reviewed & are unremarkable except as noted in H Resp Resp: Reports system reviewed and no additional complaints, except as documented; Denies cough GI GI: Reports as per HPI Psych Psych: Reports system reviewed and no additional complaints, except as documented Exam Const General: cooperative, healthy appearing, comfortable and no acute distress Resp Effort & Inspection: normal respiratory effort Skin General: no rashes or lesions noted Psych Appearance: grossly normal Speech and Movement: speech and movement normal Coding Level of Care Code Off vis,est,level 4 Diagnoses Menorrhagia with regular cycle N92.0 Menorrhagia type: with regular cycle Malignant neoplasm of upper-outer quadrant of right breast in female, estrogen receptor positive C50.411; Z17.0 Malignant neoplasm of right female breast, unspecified estrogen receptor status, unspecified site of breast C50.911 Breast location: unspecified site of breast Estrogen receptor status: unspecified Patient sex: female Laterality: right Use of aromatase inhibitors Z79.811 Assessment and Plan Assessment and Plan (1) Menorrhagia: Status: Acute Qualifiers: Menorrhagia type: with regular cycle Qualified Code(s): N92.0 - Excessive and frequent menstruation with regular cycle (2) Malignant neoplasm of upper-outer quadrant of right breast in female, estrogen receptor positive: Status: Acute Comment: Invasive carcinoma ductal and lobular features tumor size 49 mm, multifocal disease-2, grade 2 lymph node 4 out of 4 negative pathologic staging pT2 pN0. ER 91 to 100% positive, NE 91 to 100% positive HER2 negative by FISH. Prognostically stage IIB status post right breast mastectomy and reconstruction with implant. (3) Breast cancer: Status: Acute Qualifiers: Breast location: unspecified site of breast Estrogen receptor status: unspecified Patient sex: female Laterality: right Qualified Code(s): C50.911 - Malignant neoplasm of unspecified site of right female breast Comment: right breast cancer (4) Use of aromatase inhibitors: Status: Acute Plan After discussing the patient's diagnosis and treatment plan options, patient wishes to proceed with surgical management. I have discussed with the patient the risks, benefits, and alternatives of the procedure which include but are not limited to risks of anesthesia, bleeding, infection, possible damage to bowel, bladder, or surrounding vasculature which could lead to additional surgery to evaluate any complications. Patient agrees to procedure and wishes to proceed. ACOG/uptodate references given for additional information regarding procedure. plan for total robotic hysterectomy, bilateral salpingo-oophorectomy, and cystoscopy.
[2024-09-28] MEDS: Cefazolin 2 GM in Syringe 10 ML IV (11:40)
--- NOTE | 2024-09-28 14:03 | PCM.OPRPT ---
Problems Associated Problem List Diagnoses (1) Menorrhagia: (2) Malignant neoplasm of upper-outer quadrant of right breast in female, estrogen receptor positive: (3) Breast cancer: Multi Select Codes Urinary/Genital Urinary/Genital CPT Codes: 52028 Cystoscopy and 93991 TLH+BS/O <250gr uterus Operative Report (Standard) Operative Information Date of Procedure: 09/28/24 Pre-Operative Diagnosis: history of breast cancer, menorrhagia Post-Operative Diagnosis: history of breast cancer, menorrhagia Surgery/Procedure Performed: total robotic hysterectomy, bilateral salpingectomy, cystocopy, lysis of adhesions gunner's mate: Yes Dry Mop Maker: Ishan Conte Tasks completed by heel sprayer first: Closing, Trocar and Retracting Additional culture media laboratory assistant?: Yes Additional Marketing Specialist #2: Renuka Kay Tasks completed by culture media laboratory assistant #2: Closing, Trocar and Retracting Additional culture media laboratory assistant?: No Type of Anesthesia: General RN Documented Start/Stop Times: Operation Date: 09/28/24 10:45 Case Time Into Pre-Op 09/28/24 08:44 Out of Pre-Op 09/28/24 11:29 Anesthesia Start 09/28/24 11:34 Into Room 09/28/24 11:34 Procedure Start 09/28/24 11:59 Procedure End 09/28/24 13:51 Anesthesia End 09/28/24 14:06 Out of Room 09/28/24 14:06 Into Recovery 09/28/24 14:10 Procedure Start Time: 11:59 Procedure Stop Time: 14:10 Select all DRAINS/GRAFTS/IMPLANTS that apply: None Estimated Blood Loss: 100cc Specimen collected: Yes Description of specimen(s) removed: uterus, cervix, ovaries, fallopian tubes Description of surgery: Findings: 12 cm uterus, normal appearing ovaries and tubes. marked amout of uterine scar tissue to the anterior abdominal wall On exploration of the abdominal cavity the bowel, and liver, and appendix were found to be normal, . Cystoscopy showed no evidence of leaking at approximately 250 cc of normal saline, positive ureteral orifices and jet flow are seen and no suture material was appreciated in the bladder. Specimens removed: Uterus and cervix, Bilateral tubes and ovaries Reason for surgery: This is a 44-year-old G2, P2 who presented to my office with history of breast cancer and heavy period. Her oncologist is requesting a BSO to better elizabeth treatment. The planned procedure is for a robotic hysterectomy with BSO. the risks benefits and alternatives were discussed with the patient the patient had a clear understanding of the procedure and a consent form was signed. Procedure: The patient was placed in the dorsal low lithotomy position and prepped and draped in the normal sterile fashion both abdominally and in the perineum. Her legs were placed in stirrups a Garcia catheter was inserted into the urethra without difficulty. A weighted speculum was placed in the vagina and a single-tooth tenaculum was used to grasp the anterior lip of the cervix. An [employer] uterine manipulator was inserted through the cervix without complication. It was then tied into place at the 2 and 10:00 locations on the cervix. Gloves were changed and attention was turned towards the abdomen. Approximately 23 cm above the pubic symphysis in the midline, and after Marcaine injection, a 8 mm incision was made. An 8 mm trocar was inserted through the laparoscope, then inserted into the abdomen under direct visualization using the laparoscope. Good abdominal placement was noted and no complications were appreciated. An air seal device was utilized to create pneumoperitoneum. At 12 cm lateral to the midline on the left and right sides 8 mm accessory ports were placed. Next a left upper quadrant 8 mm culture media laboratory assistant port site was placed. The patient was placed in steep Trendelenburg position. The robot was docked. The hysterectomy was initiated first by dissecting the uterus from the anterior abdominal wall. Once most of the scar tissue was taken down using the monoplar scissors, the the round ligament on each side was taken down using the vessel sealer device. The peritoneum between the round ligament and the IP ligament was opened using electrocautery and extended the length of the IP ligament. The IP ligament was then taken down using the vessel sealer device. These areas were freed without complication the broad ligament was then and taken down using the vessel sealer device. Next the bladder flap was taken down with some difficulty due to the scar tissue but was without complication. This was done using monopolar cautery to the level of the cervical vaginal junction. After the bladder flap was created, uterine vessels were then isolated and cauterized using the vessel sealer device and EndoShears. At this point the uterine vessels were taken down further starting from the ascending branch, dissecting along the edges of the cervix to the level of the cervical vaginal junction with hemostasis appreciated. The cervical vaginal junction was then using monopolar cautery in a circumferential pattern across the superior aspect of the cervix. The specimen was delivered through the vagina and sent to pathology. The remaining vaginal cuff was then closed using a V lock suture. This was performed in a running technique. Excellent hemostasis was obtained and good closure was noted. Irrigation was then performed. All operative sites were noted to be hemostatic. A cystoscopy was performed with a 70 degree cystoscope through the urethra into the bladder without complication. The bladder was instilled with approximately 250 cc of normal saline. Intraoperative images were made. Ureteral orifices and jets were identified. No suture material was appreciated in the bladder. The bladder was then drained and cystoscope was removed. The abdominal cavity was again examined using the laparoscope after the robot was undocked. All operative sites were noted to be hemostatic. The trochars were removed under direct visualization without complication and pneumoperitoneum was reduced. At this point the skin was then closed using 4-0 Monocryl subcuticular stitch and sealed with surgical glue. The patient tolerated the procedure well sponge lap and needle counts were correct x2 the patient was taken to the recovery room in stable condition. Surgical Findings: scar tissue of the uterus to the anterior abdominal wall. Complications Complications: No Admit VTE Documentation VTE Present on Admission: No VTE Mechan Device Prophylaxis: SCD's VTE Pharm Prophylaxis ordered?: No
--- NOTE | 2024-09-28 14:19 | PCM.POST.ANE ---
Anesthesia: Postop Eval I Current Vital Signs Temperature: 97 F Pulse Rate: 78 Blood Pressure: 122/78 Respiratory Rate: 16 Pulse Ox: 98 Oxygen Delivery Method: Simple Mask Oxygen Flow Rate (L/min): 6 Assessment Airway patent: Yes Spontaneous unlabored respirations: Yes Mental status: Awake and Calm nausea: No Vomiting: No Anesthesia Complication: No Fluid Hydration Crystalloid volume administer (ml): 1,000 Total IV fluid infused: 1,000 Progress Note Anesthesia document: Postop Eval 1 completed: Yes
[2024-09-28 14:38] LABS: Bedside Glucose 111 mg/dL (74-106)
[2024-09-28] MEDS: Ketorolac 30 MG/ML Syringe IV (16:45)
--- NOTE | 2024-09-28 20:21 | POSTOPAN2_ITS ---
Anesthesia Postop Eval I Sum Postop Eval Completion status Anesthesia document: Postop Eval 1 completed: Yes Anesthesia Postop Eval I Summary Anesthesia Postop Eval I Summary: Anesthesia Postop Eval I: Assessment Summary Airway patent Yes 09/28/24 14:19 [email or web address] [email or web address] Spontaneous unlabored Yes 09/28/24 14:19 DBA [email or web address] respirations Mental status Awake,Calm 09/28/24 14:19 [email or web address] nausea No 09/28/24 14:19 DBA [email or web address] Vomiting No 09/28/24 14:19 DBA [email or web address] Anesthesia Postop Eval I: Fluid Summary Crystalloid volume administer 1,000 09/28/24 14:19 DBA [email or web address] (ml) Colloids volume administered ( ml) Blood Product volume administered (ml) Total IV fluid infused 1,000 09/28/24 14:19 DBA [email or web address] Anesthesia Postop Eval I: Summary Notes Anesthesia Complication No 09/28/24 14:19 DBA [email or web address] Anesthesia Complication Comment: Post-operative progress note Anesthesia: Postop Eval II Evaluation Mental status: Awake and Calm Pain Level: 2 nausea: No Vomiting: No Complications Anesthesia Complication: No
--- NOTE | 2024-09-28 20:21 | PCM.POSTANE2 ---
Anesthesia Postop Eval I Sum Postop Eval Completion status Anesthesia document: Postop Eval 1 completed: Yes Anesthesia Postop Eval I Summary Anesthesia Postop Eval I Summary: Anesthesia Postop Eval I: Assessment Summary Airway patent Yes 09/28/24 14:19 SUPERVISOR [email or web address].[email or web address] Spontaneous unlabored Yes 09/28/24 14:19 SUPERVISOR [employer] PRODUCTION.[email or web address] respirations Mental status Awake,Calm 09/28/24 14:19 SUPERVISOR [employer].[email or web address] nausea No 09/28/24 14:19 SUPERVISOR [employer] PRODUCTION.[email or web address] Vomiting No 09/28/24 14:19 SUPERVISOR [employer] PRODUCTION.[email or web address] Anesthesia Postop Eval I: Fluid Summary Crystalloid volume administer 1,000 09/28/24 14:19 SUPERVISOR [employer].[email or web address] (ml) Colloids volume administered ( ml) Blood Product volume administered (ml) Total IV fluid infused 1,000 09/28/24 14:19 SUPERVISOR [employer] PRODUCTION.[email or web address] Anesthesia Postop Eval I: Summary Notes Anesthesia Complication No 09/28/24 14:19 SUPERVISOR [employer].CATHIE Anesthesia Complication Comment: Post-operative progress note Anesthesia: Postop Eval II Evaluation Mental status: Awake and Calm Pain Level: 2 nausea: No Vomiting: No Complications Anesthesia Complication: No
== END 2024-09-28 17:43 | disposition home or self-care (01) ==
LOC: SDC 08:33 → AC 08:33
PROVIDERS: Anesthesiology; Physician Assistant; PCP Internal Medicine; Referring Provider Obstetrics & Gynecology; Visit Provider Obstetrics & Gynecology
PROC: 0UT94ZZ Resection of Uterus, Percutaneous Endoscopic Approach (ICD-10-PCS; CPT 58552; principal; 2024-09-28 10:25)
DX: D25.9 Leiomyoma of uterus, unspecified (principal); N92.0 Excessive and frequent menstruation with regular cycle; Z90.11 Acquired absence of right breast and nipple; Z79.811 Long term (current) use of aromatase inhibitors; Z85.3 Personal history of malignant neoplasm of breast; Z79.899 Other long term (current) drug therapy
CPT/HCPCS: 58552; S2900; 00944; 36415; 80061; 81025; 82962; 83735; 85027; 86850; 86900; 86901; 88307; J2405; J3475

== ENCOUNTER 2024-10-07 10:27 | Emergency (ER) | payer OTHER, SELFPAY ==
[2024-10-07 10:27] VITALS: BP 205/102; PULSE 85; RESP 16; TEMP 36.4; O2SAT 99; BMI 42.2
--- NOTE | 2024-10-07 10:46 | EKG12_ITS ---
Test Reason : Blood Pressure : */* mmHG Vent. Rate : 76 BPM Atrial Rate : 76 BPM P-R Int : 142 ms QRS Dur : 76 ms QT Int : 354 ms P-R-T Axes : 28 14 31 degrees QTcB Int : 398 ms Normal sinus rhythm Normal ECG Confirmed by Chacorta Wyatt ([id number]), pictures editor TRAMAINE HERNÁNDEZ ([id number]) on 10/08/2024 12:45:47 PM Referred By: DAVID Confirmed By: Chacorta Wyatt
--- NOTE | 2024-10-07 10:47 | ED.VIS.DYS ---
HPI History of Present Illness Chief Complaint: Shortness of Breath Detail of Chief Complaint: Shortness of breath Informant: patient Narrative Narrative: Patient presents the emergency department complaint of shortness of breath that started 2 days ago. She complains of wheezing. She was sent in by her FIELD SUPERINTENDENT Dr. Talavera because she had a hysterectomy 9 days ago. Patient does describe some mild chest discomfort intermittently that radiates to her back. She has no heart history. No history of PE or DVT. Denies fever chills or sweats. No history of asthma. [facility] Medical History Cancer Depression Marijuana use Anxiety Alcohol use Anemia Restless legs Back pain Migraine headache History of IBS Shortness of breath on exertion Leg cramps Non-smoker History of edema History of irregular heartbeat IFG (impaired fasting glucose) Use of aromatase inhibitors Home Medications ?Medication ?Instructions ?Recorded ?Last Taken ?Type anastrozole 1 mg tablet 1 mg PO QDAY 06/29/24 09/27/24 History fluticasone propionate 50 2 spray intranasal QDAY 06/29/24 Unknown History mcg/actuation nasal spray,suspension (Flonase Allergy Relief) ibuprofen 600 mg tablet 600 mg PO Q6H PRN pain 06/29/24 09/25/24 History lorazepam 0.5 mg tablet 0.5 mg PO QDAY PRN anxiety #30 tabs 08/27/24 09/25/24 Rx buspirone 5 mg tablet 5 mg PO BID #60 tabs 09/23/24 Unknown Rx ibuprofen 600 mg tablet 600 mg PO Q6H PRN PRN Pain #30 tabs 09/28/24 Unknown Rx ibuprofen 800 mg tablet 800 mg PO Q8H PRN pain #30 tabs 09/28/24 Unknown Rx ondansetron 4 mg disintegrating 4 mg PO Q8H PRN nausea and 09/28/24 Unknown Rx tablet vomiting #30 tabs ondansetron HCl 4 mg tablet 4 mg PO Q6H PRN nausea and 09/28/24 Unknown Rx vomiting #30 tabs oxycodone-acetaminophen 5 mg-325 1 tab PO Q4H PRN pain 7 days #20 09/28/24 Unknown Rx mg tablet (Percocet) tabs oxycodone-acetaminophen 5 mg-325 1 tab PO Q4H PRN pain 7 days #20 09/28/24 Unknown Rx mg tablet (Percocet) tabs Allergy/AdvReac Type Severity Reaction Status Date / Time ciprofloxacin (From Cipro) Allergy Intermediate Swelling Verified 09/28/24 08:59 nitrofurantoin (From Allergy Hives Verified 09/28/24 08:59 Macrobid) sulfamethoxazole (From Allergy Angioedema Verified 09/28/24 08:59 Bactrim) trimethoprim (From Bactrim) Allergy Angioedema Verified 09/28/24 08:59 Family History Mother Alcoholism Diabetes Hypertension Father Alcoholism Grandmother Asthma Diabetes Aunt Asthma Grandfather Cancer stomach Grandmother Cancer brain Grandfather Diabetes Surgical History H/O right breast implant History of cholecystectomy H/O total mastectomy of right breast H/O: Social History household members: spouse current occupational status: unemployed Smoking Status: Never smoker alcohol intake: current alcohol intake frequency: holidays/special occasions only substance use type: other details: previously used edibles caffeine: Yes what type of physical activity do you participate in: yoga frequency: daily seatbelt use: always do you feel safe at home: Yes additional social history: -Arron NEELAM ROS ED Review of Systems ROS Unobtainable: other Constitutional Constitutional ED: Reports lethargy; Denies chills, fever(s), sweats or weight loss Eyes Eyes: Denies blurry vision, change in vision or diplopia ENT ENT ED: Denies rhinorrhea or sore throat Cardiovascular Cardiovascular: Reports chest pain; Denies orthopnea or racing heartbeat Respiratory/Chest Respiratory/Chest: Reports cough, dyspnea and dyspnea on exertion; Denies orthopnea or sputum Gastrointestinal Gastrointestinal: Denies abdominal pain, diarrhea, nausea or vomiting Genitourinary Genitourinary ED: Denies dysuria, hematuria or urinary frequency Musculoskeletal Musculoskeletal: Denies arthralgias, back pain, myalgias or neck pain Integumentary Denies abscess, Abrasions or rash Neurologic Neurologic: Denies headache(s) or weakness Psychiatric Psychiatric: Denies anxiety, depression or suicidal thoughts Endocrine Endocrinology: Denies polydipsia, polyphagia or polyuria Hematologic/Lymphatic Hematologic/Lymphatic: Denies easy bleeding, easy bruising or lymphadenopathy Allergic/Immunologic Allergic/Immunologic ED: Denies mouth swelling, tongue swelling or urticaria EXAM Physical Exam Const Vital Signs: 10/07/24 10:27 10/07/24 11:00 Temperature 97.6 F L Temperature Source Temporal Pulse Rate 85 75 Respiratory Rate 16 18 Respiratory Pattern Normal Blood Pressure 205/102 H Blood Pressure Mean 136 Pulse Ox 99 Oxygen Delivery Method Room Air Positive well nourished and well developed General Appearance ED: well developed and NAD HEENT Reports TM's clear and moist mucous membranes normocephalic and atraumatic; Negative for trauma or tenderness Tympanic Membrane ED: Yes TM's clear Eyes PERRL and EOMs intact bilaterally General Eye ED: Negative for pale conjunctiva or scleral icterus Neck no lymphadenopathy, supple and no JVD General: Negative for tenderness Chest Wall inspection of chest normal and palpation of chest normal Chest: Negative for tenderness Resp normal respiratory effort and clear to auscultation bilaterally Resp Narrative: Mild pain expiratory wheezes. No stridor on exam Effort and Inspection: Negative for respiratory distress or pain with movement Auscultation: wheezes; Negative for rhonchi or diminished lung sounds Cardio regular rate, regular rhythm, S1 normal heart sound, S2 normal heart sound and no murmurs Peripheral Pulses: pulses 2+ throughout GI normal to inspection, nondistended, normoactive bowel sounds, soft to palpation, non-tender, non-distended and no masses Back/Spine no CVA tenderness and no thoracic nor lumbar tenderness Extremity normal to inspection General Extremety ED: Negative for edema General Extremity: Negative for edema Neuro oriented x3, CN's II-XII intact bilaterally, no sensory deficits noted and gait normal Sensorium / Orientation: awake, alert, oriented to person, oriented to place and oriented to time Motor Exam: strength 5/5 throughout and strength abnormal Psych mental status grossly normal Skin no rashes or lesions noted and no wounds MDM MDM MDM Narrative Medical decision making narrative: Patient presents to the emergency department with complaint of wheezing and some shortness of breath. She has had some nondescript chest discomfort that radiates to her back. She is 9 days post hysterectomy and referred to the ER by her FIELD SUPERINTENDENT. Clinically she looks well. EKG obtained arrival showed a sinus rhythm with ventricular rate of of 76 bpm with no acute ST segment changes. CBC with differential showed white count 10.0 with hemoglobin 12.5 and platelet count of 397. Chemistries unremarkable. Troponin was less than 6. I did do a CTA of the chest that was negative for PE or infiltrate or any acute process. COVID flu and RSV testing was negative. At this point she will be discharged to home. She did receive a dose of DuoNeb aerosol and she did feel improved. She was given 1 dose of Decadron and will send home with an inhaler. Suspect reactive airway disease. Lab Data Attestation: I reviewed the patient's lab results. Labs: Laboratory Results - last 24 hr 10/07/24 11:00 WBC 10.0 RBC 4.43 Hgb 12.5 Hct 37.8 MCV 85.3 MCH 28.2 MCHC 33.1 RDW Std Deviation 41.1 RDW Coeff of Zenia 13.2 Plt Count 397 MPV 9.7 Immature Gran % (Auto) 0.700 Neut % (Auto) 61.1 Lymph % (Auto) 21.4 Garza % (Auto) 6.8 Eos % (Auto) 9.4 H Baso % (Auto) 0.6 Absolute Neuts (auto) 6.1 Absolute Lymphs (auto) 2.13 Nucleated RBC % 0 Sodium 141 Potassium 4.1 Chloride 104 Carbon Dioxide 25.8 Anion Gap 12 BUN 14 Creatinine 0.58 L Estim Creat Clear Calc 152.92 Est GFR (MDRD) Non-Af 115 BUN/Creatinine Ratio 24.7 H Glucose 98 Calcium 10.0 Troponin T High Sens < 6 Radiography Diagnostic Testing: Clinical Impression(s) from Imaging Studies Chest CTA 10/07/24 11:27 IMPRESSION: Status post right mastectomy and right breast implants. Minimal degree of bibasilar atelectasis. No evidence of pulmonary embolism. Reading Location: [facility] EKG Initial EKG: Attestation: I personally reviewed and interpreted this EKG as follows: Comments: Sinus rhythm with rate of 76 bpm with no acute ST segment changes Discharge Plan Triage Chief Complaint: Shortness of Breath ED Provider: Darwin Wong Dx/Rx/DC Orders Clinical Impression: Acute dyspnea, Reactive airway disease Instructions: ED Bronchitis, No Antibiotic (Adult), ED Dyspnea Prescriptions: No Action anastrozole 1 mg tablet 1 mg PO QDAY fluticasone propionate [Flonase Allergy Relief] 50 mcg/actuation spray,suspension 2 spray intranasal QDAY Rx Instructions: administer into each nostril ibuprofen 600 mg tablet 600 mg PO Q6H PRN (Reason: pain) buspirone 5 mg tablet 5 mg PO BID Qty: 60 1RF oxycodone-acetaminophen [Percocet] 5-325 mg tablet 1 tab PO Q4H PRN (Reason: pain) 7 Days Qty: 20 0RF ondansetron 4 mg tablet,disintegrating 4 mg PO Q8H PRN (Reason: nausea and vomiting) Qty: 30 0RF ibuprofen 600 mg tablet 600 mg PO Q6H PRN PRN (Reason: Pain) Qty: 30 0RF lorazepam 0.5 mg tablet 0.5 mg PO QDAY PRN (Reason: anxiety) Qty: 30 0RF oxycodone-acetaminophen [Percocet] 5-325 mg tablet 1 tab PO Q4H PRN (Reason: pain) 7 Days Qty: 20 0RF ondansetron HCl 4 mg tablet 4 mg PO Q6H PRN (Reason: nausea and vomiting) Qty: 30 0RF ibuprofen 800 mg tablet 800 mg PO Q8H PRN (Reason: pain) Qty: 30 0RF Primary Care Provider: Nataliia Luciano Referrals: Nataliia Luciano MD [Primary Care Provider] - Activity Restrictions/Additional Instructions: Keep your appointment with your FIELD SUPERINTENDENT. Print Language: Indian Disposition Disposition: Home, Self Care
[2024-10-07] MEDS: Ipratropium/Albuterol Sulfate 3 ML AMPUL.NEB INHALATION (10:58)
[2024-10-07 11:00] VITALS: PULSE 75; RESP 18
[2024-10-07 11:09] LABS: Absolute Lymphocyte Count 2.13 X10^3/uL (0.83-4.51); Absolute Neutrophil Count 6.1 X10^3/uL (2.0-7.7); Basophil# 0.06 X10^3/uL; Basophil% 0.6 % (0-1); Eosinophil# 0.94 X10^3/uL; Eosinophils% 9.4 % (0-5); Hematocrit 37.8 % (37-47); Hemoglobin 12.5 g/dL (12.0-15.0); Lymphocyte # 2.13 X10^3/ul (0.83-4.51); Lymphocyte % 21.4 % (19-41); Mean Corp Hgb Conc 33.1 g/dL (32-36); Mean Corpuscular Hgb 28.2 pg (27.0-32.0); Mean Corpuscular Volume 85.3 fL (81-99); Mean Platelet Vol. 9.7 fl (6.2-12.0); Monocyte# 0.68 X10^3/uL; Monocyte% 6.8 % (0-10); NRBC Flagged by Analyzer 0 % (0-5); Neutrophil # 6.09 X10^3/uL (2.7-7.7); Neutrophil % 61.1 % (47-70); Platelet Count 397 K/mm3 (150-450); RBC Distribution Width CV 13.2 % (11.6-14.6); RBC Distribution Width SD 41.1 fl (35.1-43.9); Red Blood Count 4.43 M/mm3 (4.2-5.4)
[2024-10-07 11:27] VITALS: PULSE 79; O2SAT 98
[2024-10-07 11:27] LABS: Anion Gap 12 (5-15); BUN 14 mg/dL (4-19); BUN/Creat Ratio 24.7 RATIO (10-20); Carbon Dioxide 25.8 mmol/L (21.0-32.0); Chloride 104 mmol/L (98-108); Creatinine, Serum 0.58 mg/dL (0.70-1.20); EST Glomerular Filtration Rate 115 (>60); Estimated Creatinine Clearance 152.92 ml/min (50-250); Glucose 98 mg/dL (70-99); Potassium 4.1 mmol/L (3.3-5.1); Sodium Level 141 mmol/L (133-145); Troponin T High Sensitivity < 6 ng/L (<=14)
--- NOTE | 2024-10-07 11:27 | CT_ITS ---
PROCEDURE: CTA CHEST W/WO CONTRAST 10/07/2024 REASON FOR EXAM: DYSPNEA, HYSTERECTOMY 9 DAYS AGO TECHNIQUE: CTA axial imaging of the chest with intravenous contrast. Coronal and Sagittal reconstruction series were provided. 3D, 3D post processing, 3D reconstructions, Maximum intensity projection (MIPs) Volume rendering and Shaded surface rendering was provided. PATIENT PREPARATION: Per protocol CONTRAST: Isovue 370 VOLUME: 100 mL One or more dose reduction techniques were used (e.g., Automated exposure control, adjustment of the mA and/or kV according to patient size, use of iterative reconstruction technique). RADIATION DOSE SUMMARY: CTDlvol: 12 mGy DLP: 502.81 mGycm . COMPARISON: None FINDINGS: Hardware: None. Prior right mastectomy and right breast implant. Lymph nodes: Small benign-appearing bilateral axillary lymph nodes. Heart: Unremarkable Thoracic Aorta: No thoracic aortic aneurysm or dissection. Pulmonary Vessels: No evidence of acute pulmonary emboli through the major subsegmental branches. Lungs and Airways: Mild dependent atelectasis. Pleura: Unremarkable Upper Abdomen: Unremarkable Bones: Degenerative changes of the thoracic spine. CT/CTA Chest W/WO Contrast IMPRESSION: Status post right mastectomy and right breast implants. Minimal degree of bibasilar atelectasis. No evidence of pulmonary embolism. Reading Location: [place] [id number]
[2024-10-07 12:00] VITALS: BP 156/86
[2024-10-07 13:00] VITALS: BP 156/86; PULSE 81; O2SAT 98
[2024-10-07] MEDS: dexAMETHasone 10 MG/ML Vial IV (13:00)
[2024-10-07] MEDS: Albuterol Sulfate 8 gm Inhaler (60 puffs) 2 PUFF INHALATION (13:01)
[2024-10-07 13:09] VITALS: BP 156/86; PULSE 80; RESP 16; TEMP 36.4; O2SAT 97
== END 2024-10-07 13:13 | disposition home or self-care (01) ==
PROVIDERS: Emergency Provider Emergency Medicine; PCP Internal Medicine; Visit Provider Emergency Medicine
DX: R06.00 Dyspnea, unspecified (principal); J45.909 Unspecified asthma, uncomplicated; R07.89 Other chest pain; F32.A Depression, unspecified; F41.9 Anxiety disorder, unspecified; Z79.899 Other long term (current) drug therapy; Z90.710 Acquired absence of both cervix and uterus
CPT/HCPCS: 71275; 80048; 84484; 85025; 87631; 93005; 94640; 96374; 99283; Q9967; A4216